=== PATIENT | male | born 1955 | race Caucasian/White ===

== ENCOUNTER → 2017-06-24 | Outpatient (CLI) | payer BC ==
--- NOTE | 2017-06-24 14:01 | US ---
EXAMINATION TYPE: US scrotum with doppler. Grayscale and color Doppler Duplex imaging performed of seema weems scrotum. DATE OF EXAM: 06/24/2017 COMPARISON: NONE CLINICAL HISTORY: N46.9 Encysted [id number] Encysted hydrocele. Swelling. 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 EXAM MEASUREMENTS: TESTICLES: Right Testicle: 4.4 x 3.8 x 2.8 cm Left Testicle: 5.4 x 3.3 x 2.8 cm EPIDIDYMIS HEAD: Right Epididymis: 0.8 cm Left Epididymis: 0.8 cm Doppler performed to assess for testicular vascularity; good bilateral color flow and waveforms are s een. There is no evidence of testicular torsion. Presence of hydroceles: Small on the right. Presence of varicoceles: No There are cystic areas visualized bilaterally, inferior and lateral to the testicles of uncertain rachele ology. The cystic area on the right measures 5.0 x 5.3 x 7.0 cm. The cystic area on the left measures 6.5 x 5.3 x 5.6 cm. IMPRESSION: Thin-walled fairly moderate to large size cystic fluid collections are noted inferior to both testicles could reflect loculated hydroceles, local mass effect is noted. Measurements as detail ed above.
== END | disposition home or self-care (01) ==
LOC: RADUSWWP 13:07
PROVIDERS: ATTEND Urology
DX: N43.3 Hydrocele, unspecified (principal)
CPT/HCPCS: 76870; 93975

== ENCOUNTER → 2020-05-14 | Outpatient (CLI) | payer BC ==
--- NOTE | 2020-05-14 14:40 | MR ---
EXAMINATION TYPE: MR knee LT wo con DATE OF EXAM: 05/14/2020 COMPARISON: None HISTORY: Medial left knee pain from twisting knee. Multiplanar multiecho imaging of the left knee was performed without contrast. The anterior and posterior cruciate ligaments are intact. There is a mild to moderate knee joint effu ashli. There is 5 x 1 cm popliteal cyst. There is spurring on the patella. The collateral ligaments ar e intact. There is horizontal defect through the posterior horn medial meniscus extending to the infe rior surface. The lateral meniscus shows mild increased signal on the inferior surface. I see no bony destructive process. There is no evidence of a fracture. IMPRESSION: Knee joint effusion with popliteal cyst. No evidence of ligamentous tear. Oblique tear of the posterior horn medial meniscus. Minimal degenerative changes within the lateral m eniscus.
== END | disposition home or self-care (01) ==
LOC: RADMRIMAIN 13:10
PROVIDERS: ATTEND Family Medicine
DX: M17.12 Unilateral primary osteoarthritis, left knee (principal)